=== PATIENT | female | born 2000 | race Two or more races ===

== ENCOUNTER 2020-05-05 17:45 | Emergency (ER) | payer MEDICAID, OTHER ==
--- NOTE | 2020-05-05 17:51 | EDM.PDOC ---
ED HPI GENERAL MEDICAL PROBLEM - General Stated Complaint: SOB/FEVER Time Seen by Provider: 05/05/20 17:50 Source of Information: Reports: Patient History Limitations: Reports: No Limitations - History of Present Illness INITIAL COMMENTS - FREE TEXT/NARRATIVE: HISTORY AND PHYSICAL: History of present illness: Patient is a 19 year old female who presents to the ED with c/o body aches, shortness of breathe, and fever. States she has had body aches over the past 2 weeks. Today she had a fever of 102 and SOB when she tried to take in deep breathes or do physial activities. States her mother works at a halfway and she works at [employer], she has many unknown exposures - but has had no definite exposures. No one immediately around her is ill. Patient denies any headache, change in vision, syncope or near syncope. Denies any chest pain, back pain or cough. Denies any abdominal pain, nausea, vomiting, diarrhea, constipation or dysuria. Denies any chance of today. Patient has been eating and drinking appropriately. Review of systems: As per history of present illness and below otherwise all systems reviewed and negative. Past medical history: As per history of present illness and as reviewed below otherwise noncontributory. Surgical history: As per history of present illness and as reviewed below otherwise noncontributory. Social history: See social history for further information Family history: As per history of present illness and as reviewed below otherwise noncontributory. Physical exam: General: Well developed and well nourished 19 year old female. A&O x 3. Nontoxic appearing and in no acute distress. VSS and have been reviewed by me. HEENT: Atraumatic, normocephalic, pupils equal and reactive bilaterally, negative for conjunctival pallor or scleral icterus, mucous membranes moist, TMs normal bilaterally, throat clear, neck supple, nontender, trachea midline. No drooling or trismus noted. No meningeal signs. No hot potato voice noted. Lungs: Clear to auscultation, breath sounds equal bilaterally, chest nontender. Heart: S1S2, regular rate and rhythm without overt murmur Abdomen: Soft, nondistended, nontender. Skin: Intact, warm, dry. No lesions or rashes noted. Extremities: Atraumatic, moves all extremities per self without difficulty or deficits, negative for cords or calf pain. Neurovascular unremarkable. Neuro: Awake, alert, oriented. Cranial nerves II through XII unremarkable. Cerebellum unremarkable. Motor and sensory unremarkable throughout. Exam nonfocal. Notes: Due to her reported temperature and current symptoms and exposure to the general public, I will do a COVID swab on her. I don't feel she needs any lab work, she looks overall generally healthy. All diagnostics are within normal limits. Patient continues to appear well appearing and will be appropriate to be discharged home. supportive care measures were reviewed and discussed. Voices understanding and is agreeable to plan of care. Denies any further questions or concerns at this time. Diagnostics: CXR, COVID-19, EKG Therapeutics: None Prescription: None Impression: Viral upper respiratory illness Plan: 1. Your chest x-ray, EKG and COVID-19 screening all were negative. Please continue to perform supportive care measures such as increasing your fluids, alternating Tylenol and ibuprofen and getting plenty of rest. 2. Follow-up with your primary care provider as we discussed. 3. Return to the emergency room as needed and as discussed. Definitive disposition and diagnosis as appropriate pending reevaluation and review of above. Generalized Pain Score (Numeric/FACES): 6 - Related Data Allergies Allergy/AdvReac Type Severity Reaction Status Date / Time No Known Allergies Allergy Verified 05/05/20 18:03 Home Meds: Home Meds . [No Known Home Meds] 05/05/20 [History] ED ROS GENERAL - Review of Systems Review Of Systems: Comprehensive ROS is negative, except as noted in HPI. ED EXAM, GENERAL - Physical Exam Exam: See Below (See dictation) Course - Vital Signs Last Recorded V/S: Last Vital Signs Temp 98.1 F 05/05/20 18:00 Pulse 88 05/05/20 18:00 Resp 18 05/05/20 18:00 BP 124/82 05/05/20 18:00 Pulse Ox 96 05/05/20 18:00 - Orders/Labs/Meds Orders: Active Orders 24 hr Category Date Time Status EKG Documentation Completion [RC] STAT Care 05/05/20 18:01 Active Labs: Laboratory Tests 05/05/20 Range/Units 18:39 COVID-19 (JORGE) NEGATIVE (NEGATIVE) Departure - Departure Time of Disposition: 19:11 Disposition: Home, Self-Care 01 Clinical Impression: Viral upper respiratory illness - Discharge Information Instructions: Viral Respiratory Infection, [id number] Referrals: Estee Farmer NP [Primary Care Provider] - Additional Instructions: The following information is given to patients seen in the emergency department who are being discharged to home. This information is to outline your options for follow-up care. We provide all patients seen in our emergency department with a follow-up referral. The need for follow-up, as well as the timing and circumstances, are variable depending upon the specifics of your emergency department visit. If you don't have a primary care physician on staff, we will provide you with a referral. We always advise you to contact your personal physician following an emergency department visit to inform them of the circumstance of the visit and for follow-up with them and/or the need for any referrals to a consulting specialist. The emergency department will also refer you to a specialist when appropriate. This referral assures that you have the opportunity for follow-up care with a specialist. All of these measure are taken in an effort to provide you with optimal care, which includes your follow-up. Under all circumstances we always encourage you to contact your private physician who remains a resource for coordinating your care. When calling for follow-up care, please make the office aware that this follow-up is from your recent emergency room visit. If for any reason you are refused follow-up, please contact the [facility] Emergency Department at and asked to speak to the emergency department charge nurse. [facility] [address] [place] [id number] [address] Thank you for choosing the [facility] emergency department in [place] for your medical needs today. It was a pleasure caring for you. You were seen in the emergency department for respiratory symptoms and body aches. 1. Your chest x-ray, EKG and COVID-19 screening all were negative. Please continue to perform supportive care measures such as increasing your fluids, alternating Tylenol and ibuprofen and getting plenty of rest. 2. Follow-up with your primary care provider as we discussed. 3. Return to the emergency room as needed and as discussed. Sepsis Event Note (ED) - Focused Exam Vital Signs: Vital Signs Temp Pulse Resp BP Pulse Ox 05/05/20 18:00 98.1 F 88 18 124/82 96 - My Orders Last 24 Hours: My Active Orders 05/05/20 18:01 EKG Documentation Completion [RC] STAT - Assessment/Plan Last 24 Hours: My Active Orders 05/05/20 18:01 EKG Documentation Completion [RC] STAT
--- NOTE | 2020-05-05 18:56 | CR ---
Chest: Portable view of the chest was obtained. Comparison: Prior chest x-ray of 11/23/13. Heart size and mediastinum are normal. Lungs are clear. Bony structures are grossly intact. Impression: 1. Nothing acute is seen on portable chest x-ray. Diagnostic code #1 This report was dictated in MDT
== END 2020-05-05 19:23 | disposition home or self-care (01) ==
LOC: MW.ED 17:45
DX: J98.8 Other specified respiratory disorders (principal); B97.89 Other viral agents as the cause of diseases classified elsewhere; Z20.828 Contact with and (suspected) exposure to other viral communicable diseases
CPT/HCPCS: 71045; 71045-26; 93005; 99282; 99285-25; U0002

== ENCOUNTER 2020-12-31 10:37 | Emergency (ER) | payer MEDICAID ==
--- NOTE | 2020-12-31 11:28 | EDM.PDOC ---
ED HPI GENERAL MEDICAL PROBLEM - General Chief Complaint: General Stated Complaint: LUMP ON SIDE Time Seen by Provider: 12/31/20 10:46 Source of Information: Reports: Patient History Limitations: Reports: No Limitations - History of Present Illness INITIAL COMMENTS - FREE TEXT/NARRATIVE: HISTORY AND PHYSICAL: History of present illness: Patient is a 20-year-old female who presents to the ED today with concern of left-sided rib pain/a "lump "on the left side of her ribs. Patient states that she has noticed this for the past 1 week and states that she came today to get this evaluated as she was concerned about a possible tumor. Patient denies any trauma or injury and or any other associative symptoms. Patient denies any health history. Patient denies fever, chills, chest pain, shortness of breath, or cough. Denies headache, neck stiff ness, change in vision, syncope, or near syncope. Denies nausea, vomiting, abdominal pain, diarrhea, constipation, or dysuria. Has not noted any blood in urine or stool. Patient has been eating and drinking appropriately. Review of systems: As per history of present illness and below otherwise all systems reviewed and negative. Past medical history: As per history of present illness and as reviewed below otherwise noncontributory. Surgical history: As per history of present illness and as reviewed below otherwise noncon tributory. Social history: See social history for further information Family history: As per history of present illness and as reviewed below otherwise noncontributory. Physical exam: General: Patient is alert, oriented, and in no acute distress. Patient sitting comfortably on exam table. Vitals stable and reviewed by me. HEENT: Atraumatic, normocephalic, pupils equal and reactive bilaterally, negative for conjunctival pallor or scleral icterus, mucous membranes moist, TMs normal bilaterally, throat clear, neck supple, nontender, trachea midline. No drooling or trismus noted. No meningeal signs. No hot potato voice noted. Lungs: Clear to auscultation, breath sounds equal bilaterally, chest nontender. Chest: Patient has a slightly pronounced rib 8 on the left anterior rib cage with mild pain to palpation. No obvious masses, lesions, rashes, noted to patients stated complaint. Heart: S1S2, regular rate and rhythm without overt murmur Abdomen: Soft, nondistended, nontender. Negative for masses or hepatosplenomegaly. Negative for costovertebral tenderness. Pelvis: Stable nontender. Genitourinary: Deferred. Rectal: Deferred. Skin: Intact, warm, dry. No lesions or rashes noted. Extremities: Atraumatic, negative for cords or calf pain. Neurovascular unremarkable. Neuro: Awake, alert, oriented. Cranial nerves II through XII unremarkable. Cerebellum unremarkable. Motor and sensory unremarkable throughout. Exam nonfocal. Notes: On initial exam, patient is well-appearing and vitally stable. She does complain of a "lump "on her left anterior rib cage, however, on exam I do not appreciate any lumps, masses, lesions, or rashes. She does have a slightly pronounced rib #8 on the left, which is non specific and mildly tender to palpation on exam, as to the etiology, but likely a normal variant of patient's body habitus. I did offer rib x-ray at this time, but patient declines she does not have time to stay to complete imaging. All risks versus benefits discussed with patient and expresses understanding. Discussed importance for follow-up with a primary care provider. Voices understanding and is agreeable to plan of care. Denies any further questions or concerns at this time. Diagnostics: Rib XR offered but patient declines Therapeutics: None Prescription: None Impression: Left sided rib pain Plan: 1. Rest, ice, elevate the affected extremity. You can apply ice 15 minutes on, 15 minutes off. 2. Tylenol and/or Ibuprofen as directed for pain management or discomfort. 3. Follow up with the primary care provider as discussed. Return to the ED as needed and as discussed. Definitive disposition and diagnosis as appropriate pending reevaluation and review of above. - Related Data Allergies Allergy/AdvReac Type Severity Reaction Status Date / Time No Known Allergies Allergy Verified 12/31/20 11:24 Home Meds: Home Meds . [No Known Home Meds] 05/05/20 [History] Past Medical History - Past Health History Medical/Surgical History: Denies Medical/Surgical History Psychiatric History: Reports: None - Infectious Disease History Infectious Disease History: Reports: None Social & Family History - Family History Family Medical History: No Pertinent Family History - Tobacco Use Tobacco Use Status *Q: Current Every Day Tobacco User Years of Tobacco use: 7 Packs/Tins Daily: 0.2 - Recreational Drug Use Recreational Drug Use: No ED ROS GENERAL - Review of Systems Review Of Systems: Comprehensive ROS is negative, except as noted in HPI. ED EXAM, GENERAL - Physical Exam Exam: See Below (see dictation) Course - Vital Signs Last Recorded V/S: Last Vital Signs Temp 98.0 F 12/31/20 11:21 Pulse 73 12/31/20 11:21 Resp 18 12/31/20 11:21 BP 120/56 L 12/31/20 11:21 Pulse Ox 98 12/31/20 11:21 Departure - Departure Time of Disposition: 11:50 Disposition: Home, Self-Care 01 Clinical Impression: Rib pain on left side - Discharge Information Instructions: Chest Wall Pain, [id number] Referrals: PCP,None [Primary Care Provider] - Forms: ED Department Discharge Additional Instructions: The following information is given to patients seen in the emergency department who are being discharged to home. This information is to outline your options for follow-up care. We provide all patients seen in our emergency department with a follow-up referral. The need for follow-up, as well as the timing and circumstances, are variable depending upon the specifics of your emergency department visit. If you don't have a primary care physician on staff, we will provide you with a referral. We always advise you to contact your personal physician following an emergency department visit to inform them of the circumstance of the visit and for follow-up with them and/or the need for any referrals to a consulting specialist. The emergency department will also refer you to a specialist when appropriate. This referral assures that you have the opportunity for follow-up care with a specialist. All of these measure are taken in an effort to provide you with optimal care, which includes your follow-up. Under all circumstances we always encourage you to contact your private physician who remains a resource for coordinating your care. When calling for follow-up care, please make the office aware that this follow-up is from your recent emergency room visit. If for any reason you are refused follow-up, please contact the [facility] Emergency Department at and asked to speak to the emergency department charge nurse. [facility] [address] [place] [id number] [facility] [address] [place] [address] 1. Rest, ice, elevate the affected extremity. You can apply ice 15 minutes on, 15 minutes off. 2. Tylenol and/or Ibuprofen as directed for pain management or discomfort. 3. Follow up with the primary care provider as discussed. Return to the ED as needed and as discussed. Sepsis Event Note (ED) - Evaluation Sepsis Screening Result: No Definite Risk - Focused Exam Vital Signs: Vital Signs Temp Pulse Resp BP Pulse Ox 12/31/20 11:21 98.0 F 73 18 120/56 L 98
== END 2020-12-31 12:01 | disposition home or self-care (01) ==
LOC: MW.ED 10:37
DX: R07.81 Pleurodynia (principal); Z72.0 Tobacco use
CPT/HCPCS: 99282; 99283

== ENCOUNTER 2021-01-08 23:52 | Emergency (ER) | payer MEDICAID ==
[2021-01-09 04:48] LABS: BLOOD UREA NITROGEN,BUN 6 mg/dL (7.0-18.0); CHLORIDE,CL 105 mmol/L (98-107); GLUCOSE RANDOM 104 mg/dL (74-106); LIPASE 106 U/L (73-393); POTASSIUM,K 3.9 mmol/L (3.5-5.1); SODIUM,NA 140 mmol/L (136-145)
--- NOTE | 2021-01-09 05:19 | CR ---
Indication: Chest and abdominal pain Technique: Chest 1 view Comparison: 05/05/2020 Findings/Impression: Cardiovascular and mediastinum: Heart size and vasculature are normal in caliber and appearance. Mediastinum is within normal limits. Lungs and pleural space: Lungs are clear. No sign of infiltrate or mass. No sign of pleural effusion. No pneumothorax. Bones and soft tissues: No significant findings. Dictated by Gabriel Mishra MD @ Jan 09 2021 5:16AM Signed by Dr. Gabriel Mishra @ Jan 09 2021 5:18AM
== END 2021-01-09 02:01 | disposition home or self-care (01) ==
LOC: MW.ED 23:52
DX: R07.89 Other chest pain (principal); R10.9 Unspecified abdominal pain; F17.200 Nicotine dependence, unspecified, uncomplicated
CPT/HCPCS: 36415; 71045; 71045-26; 80053; 81001; 81025; 83690; 85025; 85379; 93005; 99284-25

== ENCOUNTER 2021-03-14 10:32 | Emergency (ER) | payer MEDICAID ==
--- NOTE | 2021-03-14 10:58 | EDM.PDOC ---
ED HPI GENERAL MEDICAL PROBLEM - General Chief Complaint: General Stated Complaint: DENT IN HEAD Time Seen by Provider: 03/14/21 10:33 Source of Information: Reports: Patient History Limitations: Reports: No Limitations - History of Present Illness INITIAL COMMENTS - FREE TEXT/NARRATIVE: HISTORY AND PHYSICAL: History of present illness: Patient is a 20-year-old female who presents to the emergency room with concerns of a "dent to my head". She states a few days ago she noticed a divot to the top of her scalp which she states is tender and "sometimes feels soft". She denies any injury, trauma or falls. Does states she occasionally has mild headaches but has had these intermittently throughout her lifetime, no worse with recent finding of scalp issue. Patient denies any fever, chills, headache, change in vision, syncope or near syncope. Denies any chest pain, neck/back pain, shortness of breath or cough. Denies any abdominal pain, nausea, vomiting, diarrhea, constipation or dysuria. Has not noted any blood in urine or stool. Patient has been eating and drinking appropriately. Review of systems: As per history of present illness and below otherwise all systems reviewed and negative. Past medical history: As per history of present illness and as reviewed below otherwise noncontributory. Surgical history: As per history of present illness and as reviewed below otherwise noncontributory. Social history: See social history for further information Family history: As per history of present illness and as reviewed below otherwise noncontributory. Physical exam: General: Well developed and well nourished 20-year-old female. Alert and orientated x 3. Nontoxic in appearance and in no acute distress. Vital signs are stable and have been reviewed by me. Nursing notes were reviewed. HEENT: Atraumatic, normocephalic, nontender, without obvious injury, pupils equal and reactive bilaterally, negative for conjunctival pallor or scleral icterus, mucous membranes moist, TMs normal bilaterally, throat clear, neck supple, nontender, trachea midline. No drooling or trismus noted. No meningeal signs. No hot potato voice noted. Lungs: Clear to auscultation bilaterally. No wheezes, rales, or rhonchi. Chest nontender. Normal work of breathing, no accessory muscles used. Heart: S1S2, regular rate and rhythm without overt murmur, gallops, or rubs. No JVD. No peripheral edema Abdomen: Soft, nondistended, nontender. Normoactive bowel sounds. Negative for masses or costovertebral tenderness. C-spine/Back: No pinpoint vertebral tenderness upon palpation. No crepitus, step-offs or obvious deformities. Patient is ambulatory into the emergency room without difficulty or deficit. Able to rock back on heels and walk on toes. Denies any urinary or fecal incontinence. Denies any numbness, tingling or saddle paresthesia. No concerns of serious infection, fracture or cord compression, or cauda equina syndrome. Deep tendon reflexes brisk bilaterally. Skin: Intact, warm, dry. No lesions or rashes noted. Hematologic: No petechiae or purpra. Mucosa appropriate color and normal nail bed color and refill. Extremities: Atraumatic, moves all extremities per self without difficulty or deficits, negative for cords or calf pain. Neurovascular unremarkable. Neuro: Awake, alert, oriented. Cranial nerves II through XII unremarkable. Cerebellum unremarkable. Motor and sensory unremarkable throughout. Exam nonfocal. Psychiatric: Mood and affect are appropriate. Normal thought process. Answering questions appropriately. Notes: *This patient was seen and evaluated during the 2019 SARS-CoV-2 novel coronavirus pandemic period. Community viral transmission is ongoing at time of this encounter and the emergency department is operating under pandemic response procedures. My physical exam is within normal limits. I am unable to appreciate a "dent" that she feels to the scalp. Neurologically intact. Vital signs are stable. She adamantly denies any injury or possibility of injury. She had not palpated the spot in question she states there would be no reason for her to present to the emergency room today. We did discuss imaging. She would like to proceed with a CT of the head. I informed her that she may need an MRI at some point if the area continues to bother her. Otherwise I do not feel there is any need to do any additional diagnostics. Head CT is unremarkable. We discussed signs and symptoms that would prompt her to return to the emergency room. If she continued to feel uneasy she could always follow-up with her primary care provider for further investigation using an MRI. At this time I do not feel it is warranted through the emergency department. I have talked with the patient about today's findings, in addition to providing specific details for plan of care. Reassessment at the time of disposition demonstrates that the patient is in no acute distress. The patient is stable for discharge, counseling was provided and we discussed in great detail signs and symptoms that would prompt them to return to the Emergency Department. Medication, follow up and supportive care measures were reviewed and discussed. Voices understanding and is agreeable to plan of care. Denies any further questions or concerns at this time. Diagnostics: hCGU, head CT Therapeutics: None Prescription: None Impression: Worried well Plan: 1. You were evaluated today on an emergent basis. Your head CT is normal. If you continue to have concerns please follow up with your primary care provider for MRI. But at this time, that is not warranted. 2. You can alternate Tylenol and ibuprofen as needed for pain and fever management. 3. We encourage you to follow up with your primary care provider and/or recommended specialist in the next few days for re-evaluation and further care/management. 4. If your symptoms should worsen, new symptoms develop or any of the signs and symptoms we discussed should arise please return to the emergency room or call 911 (if needed). Definitive disposition and diagnosis as appropriate pending reevaluation and review of above. - Related Data Allergies Allergy/AdvReac Type Severity Reaction Status Date / Time No Known Allergies Allergy Verified 03/14/21 11:09 Home Meds: Home Meds . [No Known Home Meds] 03/14/21 [History] Past Medical History - Past Health History Medical/Surgical History: Denies Medical/Surgical History Psychiatric History: Reports: None - Infectious Disease History Infectious Disease History: Reports: None Social & Family History - Family History Family Medical History: No Pertinent Family History ED ROS GENERAL - Review of Systems Review Of Systems: Comprehensive ROS is negative, except as noted in HPI. ED EXAM, GENERAL - Physical Exam Exam: See Below (See dictation) Course - Vital Signs Last Recorded V/S: Last Vital Signs Temp 97.6 F 03/14/21 10:51 Pulse 93 03/14/21 10:51 Resp 15 03/14/21 10:51 BP 120/76 03/14/21 10:51 Pulse Ox 95 03/14/21 10:51 - Orders/Labs/Meds Labs: Laboratory Tests 03/14/21 Range/Units 11:22 Urine HCG, Qual NEGATIVE (NEGATIVE) Departure - Departure Time of Disposition: 12:36 Disposition: Home, Self-Care 01 Clinical Impression: Worried well - Discharge Information Instructions: Medical Screening Exam Referrals: PCP,None [Primary Care Provider] - Forms: ED Department Discharge Additional Instructions: The following information is given to patients seen in the emergency department who are being discharged to home. This information is to outline your options for follow-up care. We provide all patients seen in our emergency department with a follow-up referral. The need for follow-up, as well as the timing and circumstances, are variable depending upon the specifics of your emergency department visit. If you don't have a primary care physician on staff, we will provide you with a referral. We always advise you to contact your personal physician following an emergency department visit to inform them of the circumstance of the visit and for follow-up with them and/or the need for any referrals to a consulting specialist. The emergency department will also refer you to a specialist when appropriate. This referral assures that you have the opportunity for follow-up care with a specialist. All of these measure are taken in an effort to provide you with optimal care, which includes your follow-up. Under all circumstances we always encourage you to contact your private physician who remains a resource for coordinating your care. When calling for follow-up care, please make the office aware that this follow-up is from your recent emergency room visit. If for any reason you are refused follow-up, please contact the [facility] Emergency Department at and asked to speak to the emergency department charge nurse. [facility] [address] [place] [id number] [address] [id number] Thank you for choosing the [facility] emergency department in [place] for your medical needs today. It was a pleasure caring for you. Today you were seen in the emergency department for concerns of "dent" in scalp. 1. You were evaluated today on an emergent basis. Your head CT is normal. If you continue to have concerns please follow up with your primary care provider for MRI. But at this time, that is not warranted. 2. You can alternate Tylenol and ibuprofen as needed for pain and fever management. 3. We encourage you to follow up with your primary care provider and/or recommended specialist in the next few days for re-evaluation and further care/management. 4. If your symptoms should worsen, new symptoms develop or any of the signs and symptoms we discussed should arise please return to the emergency room or call 911 (if needed). Sepsis Event Note (ED) - Focused Exam Vital Signs: Vital Signs Temp Pulse Resp BP Pulse Ox 03/14/21 10:51 97.6 F 93 15 120/76 95
--- NOTE | 2021-03-14 12:36 | CT ---
INDICATION: Headache, dent top of head TECHNIQUE: CT head without contrast. COMPARISON: FINDINGS: CSF spaces: Within normal limits for age. Brain parenchyma: The grewal-white differentiation is normal. No sign of mass, hemorrhage, or midline shift. Skull base and calvarium: The visualized paranasal sinuses and mastoid air cells demonstrate no acute or significant findings. The visualized orbits are grossly unremarkable. No skull fractures. IMPRESSION: Unremarkable noncontrast head CT. Please note that all CT scans at this facility use dose modulation, iterative reconstruction, and/or weight-based dosing when appropriate to reduce radiation dose to as low as reasonably achievable. Dictated by Adriel Bradley MD @ 03/14/2021 12:34:[address] Adriel Bradley @ Mar 14 2021 12:34PM
== END 2021-03-14 12:51 | disposition home or self-care (01) ==
LOC: MW.ED 10:32
DX: Z71.1 Person with feared health complaint in whom no diagnosis is made (principal)
CPT/HCPCS: 70450; 70450-26; 81025; 99283; 99284-25

== ENCOUNTER 2021-11-11 20:47 | Emergency (ER) | payer MEDICAID ==
[2021-11-12] MEDS ORDERED: Acetaminophen 500 MG Tab PO ONE (00:23)
== END 2021-11-12 00:58 | disposition home or self-care (01) ==
LOC: MW.ED 20:47
DX: S92.405A Nondisplaced unspecified fracture of left great toe, initial encounter for closed fracture (principal); S92.404A Nondisplaced unspecified fracture of right great toe, initial encounter for closed fracture; S00.03XA Contusion of scalp, initial encounter; Y04.0XXA Assault by unarmed brawl or fight, initial encounter
CPT/HCPCS: 70450; 73620; 80305; 81003; 81025; 99284; A9270

== ENCOUNTER 2022-04-15 15:00 | Emergency (ER) | payer OTHER, MEDICAID | END 2022-04-15 16:04 | disposition home or self-care (01) | LOC: MW.ED 15:00 | DX: H60.502 Unspecified acute noninfective otitis externa, left ear (principal) | CPT/HCPCS: 99282 ==

== ENCOUNTER 2024-07-26 05:41 | Emergency (ER) | payer MEDICAID, OTHER | END 2024-07-26 06:18 | disposition home or self-care (01) | LOC: MW.ED 05:41 | DX: S01.81XA Laceration without foreign body of other part of head, initial encounter (principal); S99.922A Unspecified injury of left foot, initial encounter; Z86.16 Personal history of COVID-19; Z75.8 Other problems related to medical facilities and other health care; W20.8XXA Other cause of strike by thrown, projected or falling object, initial encounter | CPT/HCPCS: 99282 ==

== ENCOUNTER 2024-07-30 12:11 | Emergency (ER) | payer SELFPAY | END 2024-07-30 13:16 | disposition home or self-care (01) | LOC: MW.ED 12:11 | DX: M25.572 Pain in left ankle and joints of left foot (principal); M79.644 Pain in right finger(s); Z86.16 Personal history of COVID-19; Z75.8 Other problems related to medical facilities and other health care; X50.9XXA Other and unspecified overexertion or strenuous movements or postures, initial encounter | CPT/HCPCS: 73120-26-RT; 73120-RT; 73610-26-LT; 73610-LT; 73620-26-LT; 73620-LT; 99283 ==

== ENCOUNTER 2024-12-18 17:42 | Emergency (ER) | payer SELFPAY | END 2024-12-18 20:00 | disposition left against medical advice (07) | LOC: MW.ED 17:42 | DX: Z53.21 Procedure and treatment not carried out due to patient leaving prior to being seen by health care provider (principal) ==

== ENCOUNTER 2024-12-19 07:29 | Emergency (ER) | payer SELFPAY ==
[2024-12-19] MEDS: Diphtheria,Pertussis(Acell),Tetanus Vaccine 0.5 ML Syringe IM ONE (08:58)
[2024-12-19] MEDS: Bacitracin Oint 28.35 GM Tube TOP ONE (08:59)
== END 2024-12-19 10:03 | disposition home or self-care (01) ==
LOC: MW.ED 07:29
DX: T21.01XA Burn of unspecified degree of chest wall, initial encounter (principal); T22.012A Burn of unspecified degree of left forearm, initial encounter; Z86.16 Personal history of COVID-19; X10.2XXA Contact with fats and cooking oils, initial encounter; Z23 Encounter for immunization
CPT/HCPCS: 16000; 81025; 90471; 90715; 99283; A9270

== ENCOUNTER 2025-01-08 14:03 | Emergency (ER) | payer MEDICAID ==
[2025-01-08] MEDS ORDERED: Sodium Chloride 0.9% 2.5 ML Syringe FLUSH PRN (14:19)
[2025-01-08] MEDS ORDERED: Sodium Chloride 0.9% 10 ML Syringe FLUSH PRN (14:19)
[2025-01-08] MEDS: Sodium Chloride 0.9% 1,000 ML IV STA ×2 (14:41→15:43)
[2025-01-08] MEDS: Ondansetron 4 MG/2 ML SDV IVPUSH STA (14:52)
[2025-01-08 14:54] LABS: BASOPHILS ABSOLUTE AUTO 0.02 K/uL (0.00-0.20); BASOPHILS PERCENT AUTO 0.1 % (0.0-1.0); EOSINOPHILS ABSOLUTE AUTO 0.01 K/uL (0.00-0.45); EOSINOPHILS PERCENT AUTO 0.1 % (0.0-6.0); HEMATOCRIT 39.4 % (37.0-47.0); HEMOGLOBIN 14.2 g/dL (12.0-16.0); IMMATURE GRAN ABSOLUTE AUTO 0.07 K/uL (0.00-0.05); IMMATURE GRAN PERCENT AUTO 0.5 % (0.0-0.4); LYMPHOCYTES ABSOLUTE AUTO 0.56 K/uL (1.00-4.80); LYMPHOCYTES PERCENT AUTO 3.6 % (24.0-44.0); MEAN CORPUSCULAR VOLUME 83.3 fL (83.0-99.0); MEAN PLATELET VOLUME 11.9 fL (9.4-12.3); MONOCYTES ABSOLUTE AUTO 0.94 K/uL (0.00-0.80); NEUTROPHILS ABSOLUTE AUTO 13.94 K/uL (1.80-7.70); NEUTROPHILS PERCENT AUTO 89.7 % (41.0-71.0); PLATELET COUNT,PLT 318 K/uL (150-400); RED BLOOD CELL COUNT 4.73 M/uL (4.10-5.30); WHITE BLOOD CELL COUNT,WBC 15.54 K/uL (3.9-11.3)
[2025-01-08 14:55] LABS: APPEARANCE,URINE SLT CLOUDY; COLOR,URINE YELLOW; GLUCOSE,URINE NEGATIVE (NEGATIVE); KETONES,URINE 15 mg/dL (NEGATIVE); LEUKOCYTE ESTERASE,URINE TRACE (NEGATIVE); NITRITE,URINE NEGATIVE (NEGATIVE); OCCULT BLOOD,URINE NEGATIVE (NEGATIVE); PH,URINE 5.5 (5.0-8.0); PROTEIN,URINE 30 mg/dL (NEGATIVE); UROBILINOGEN,URINE 0.2 EU/dL (<2.0)
[2025-01-08 15:04] LABS: BILIRUBIN,URINE MODERATE (NEGATIVE)
[2025-01-08 15:23] LABS: BACTERIA,URINE RARE (NEGATIVE); EPITHELIAL CELLS,URINE RARE (NONE-FEW); RBC,URINE 0-2 (0-2/HPF); WBC,URINE 0-2 (0-5/HPF)
[2025-01-08 15:27] LABS: ALBUMIN 4.5 g/dL (3.4-5.0); BILIRUBIN TOTAL 0.7 mg/dL (0.2-1.0); CALCIUM 9.1 mg/dL (8.5-10.1); CARBON DIOXIDE,CO2 24.8 mmol/L (21.0-32.0); CREATININE 1.6 mg/dL (0.6-1.0); POTASSIUM,K 2.7 mmol/L (3.5-5.1)
[2025-01-08] MEDS: cefTRIAXone 1 GM in Sodium Chloride 0.9% 50 ML IV STA (15:43)
[2025-01-08] MEDS: Potassium Chloride 20 MEQ Tab.ER PO STA (16:21)
== END 2025-01-08 18:00 | disposition home or self-care (01) ==
LOC: MW.ED 14:03
DX: O99.281 Endocrine, nutritional and metabolic diseases complicating pregnancy, first trimester (principal); E87.6 Hypokalemia; O26.831 Pregnancy related renal disease, first trimester; N17.9 Acute kidney failure, unspecified; O99.891 Other specified diseases and conditions complicating pregnancy; R82.71 Bacteriuria; O21.9 Vomiting of pregnancy, unspecified; Z75.8 Other problems related to medical facilities and other health care; Z3A.00 Weeks of gestation of pregnancy not specified; Z79.899 Other long term (current) drug therapy
CPT/HCPCS: 36415; 80053; 81001; 83690; 83735; 85025; 87086; 96361; 96365; 96375; 99284; A9270; J0696; J2405; J7030; 99283

== ENCOUNTER 2025-01-13 01:51 | Emergency (ER) | payer MEDICAID ==
[2025-01-13 02:10] LABS: BASOPHILS ABSOLUTE AUTO 0.04 K/uL (0.00-0.20); BASOPHILS PERCENT AUTO 0.4 % (0.0-1.0); EOSINOPHILS ABSOLUTE AUTO 0.11 K/uL (0.00-0.45); HEMOGLOBIN 10.6 g/dL (12.0-16.0); IMMATURE GRAN ABSOLUTE AUTO 0.03 K/uL (0.00-0.05); IMMATURE GRAN PERCENT AUTO 0.3 % (0.0-0.4); LYMPHOCYTES ABSOLUTE AUTO 1.69 K/uL (1.00-4.80); LYMPHOCYTES PERCENT AUTO 15.6 % (24.0-44.0); MEAN CORPUSCULAR HEMOGLOBIN 29.8 pg (28.0-32.0); MEAN CORPUSCULAR HGB CONC 34.2 g/dL (32.0-36.0); MEAN CORPUSCULAR VOLUME 87.1 fL (83.0-99.0); MONOCYTES ABSOLUTE AUTO 0.84 K/uL (0.00-0.80); MONOCYTES PERCENT AUTO 7.7 % (0.0-8.0); NEUTROPHILS ABSOLUTE AUTO 8.14 K/uL (1.80-7.70); PLATELET COUNT,PLT 206 K/uL (150-400); RED BLOOD CELL COUNT 3.56 M/uL (4.10-5.30); WHITE BLOOD CELL COUNT,WBC 10.85 K/uL (3.9-11.3)
[2025-01-13 02:11] LABS: COLOR,URINE YELLOW; GLUCOSE,URINE NEGATIVE (NEGATIVE); KETONES,URINE >=80 mg/dL (NEGATIVE); LEUKOCYTE ESTERASE,URINE TRACE (NEGATIVE); NITRITE,URINE NEGATIVE (NEGATIVE); OCCULT BLOOD,URINE LARGE (NEGATIVE); PH,URINE 8.5 (5.0-8.0); PROTEIN,URINE TRACE mg/dL (NEGATIVE)
[2025-01-13 02:12] LABS: APPEARANCE,URINE HAZY; BILIRUBIN,URINE SMALL (NEGATIVE)
[2025-01-13 02:18] LABS: BACTERIA,URINE FEW (NEGATIVE); EPITHELIAL CELLS,URINE FEW (NONE-FEW)
[2025-01-13 02:19] LABS: MUCUS,URINE LIGHT (NONE-MOD)
[2025-01-13] MEDS: cefTRIAXone 1 GM in Sodium Chloride 0.9% 50 ML IV ONE (02:25)
== END 2025-01-13 03:23 | disposition home or self-care (01) ==
LOC: MW.ED 01:51
DX: O20.9 Hemorrhage in early pregnancy, unspecified (principal); O23.12 Infections of bladder in pregnancy, second trimester; N30.00 Acute cystitis without hematuria; Z3A.14 14 weeks gestation of pregnancy
CPT/HCPCS: 36415; 81001; 84703; 85025; 86900; 86901; 87086; 96365; 99284; J0696

== ENCOUNTER 2025-01-29 09:10 | Emergency (ER) | payer OTHER, MEDICAID ==
[2025-01-29] MEDS ORDERED: Sodium Chloride 0.9% 10 ML Syringe FLUSH PRN (09:30)
[2025-01-29 09:38] LABS: BASOPHILS ABSOLUTE AUTO 0.05 K/uL (0.00-0.20); BASOPHILS PERCENT AUTO 0.4 % (0.0-1.0); HEMATOCRIT 32.6 % (37.0-47.0); HEMOGLOBIN 11.5 g/dL (12.0-16.0); IMMATURE GRAN ABSOLUTE AUTO 0.04 K/uL (0.00-0.05); IMMATURE GRAN PERCENT AUTO 0.3 % (0.0-0.4); LYMPHOCYTES PERCENT AUTO 7.8 % (24.0-44.0); MEAN CORPUSCULAR HEMOGLOBIN 30.2 pg (28.0-32.0); MEAN CORPUSCULAR HGB CONC 35.3 g/dL (32.0-36.0); MEAN CORPUSCULAR VOLUME 85.6 fL (83.0-99.0); MEAN PLATELET VOLUME 11.5 fL (9.4-12.3); MONOCYTES ABSOLUTE AUTO 0.48 K/uL (0.00-0.80); MONOCYTES PERCENT AUTO 4.1 % (0.0-8.0); NEUTROPHILS ABSOLUTE AUTO 10.14 K/uL (1.80-7.70); NEUTROPHILS PERCENT AUTO 87.4 % (41.0-71.0); PLATELET COUNT,PLT 285 K/uL (150-400); RED BLOOD CELL COUNT 3.81 M/uL (4.10-5.30); WHITE BLOOD CELL COUNT,WBC 11.61 K/uL (3.9-11.3)
[2025-01-29 10:00] LABS: A/G RATIO 1.1 (0.9-1.6); ALANINE AMINOTRANSFERASE,ALT 20 IU/L (14-63); ALBUMIN 3.8 g/dL (3.4-5.0); ALKALINE PHOSPHATASE 61 U/L (46-116); ASPARTATE AMNIOTRANSFERASE,AST 25 IU/L (15-37); BILIRUBIN TOTAL 0.4 mg/dL (0.2-1.0); BLOOD UREA NITROGEN,BUN 3 mg/dL (7.0-18.0); CALCIUM 8.6 mg/dL (8.5-10.1); CARBON DIOXIDE,CO2 22.5 mmol/L (21.0-32.0); CHLORIDE,CL 103 mmol/L (98-107); CREATININE 0.7 mg/dL (0.6-1.0); ETHANOL BLOOD MEDICAL 4 mg/dL; GLUCOSE RANDOM 109 mg/dL (74-106); POTASSIUM,K 3.2 mmol/L (3.5-5.1); PROTEIN TOTAL,TP 7.2 g/dL (6.4-8.2); SODIUM,NA 139 mmol/L (136-145)
[2025-01-29 10:01] LABS: ESTIMATED GFR 124 mL/min (>60)
[2025-01-29 10:22] LABS: AMPHETAMINES SCREEN, URINE NEGATIVE (CUTOFF=500); BARBITURATE SCREEN,URINE NEGATIVE (CUTOFF=200); BENZODIAZEPINES SCREEN,URINE NEGATIVE (CUTOFF=150); BUPRENORPHINE SCREEN,URINE NEGATIVE (CUTOFF=10); METHADONE SCREEN, URINE NEGATIVE (CUTOFF=200); METHAMPHETAMINES SCREEN, URINE NEGATIVE (CUTOFF=500); OXYCODONE SCREEN,URINE NEGATIVE (CUT0FF=100); PCP SCREEN,URINE NEGATIVE (CUTOFF=25); THC SCREEN,URINE 20 NG/ML PRESUMPTIVE POSITIVE (CUTOFF=50)
[2025-01-29 10:26] LABS: APPEARANCE,URINE SLT CLOUDY; BILIRUBIN,URINE NEGATIVE (NEGATIVE); COLOR,URINE YELLOW; GLUCOSE,URINE NEGATIVE (NEGATIVE); KETONES,URINE NEGATIVE (NEGATIVE); LEUKOCYTE ESTERASE,URINE NEGATIVE (NEGATIVE); NITRITE,URINE NEGATIVE (NEGATIVE); OCCULT BLOOD,URINE NEGATIVE (NEGATIVE); PROTEIN,URINE TRACE mg/dL (NEGATIVE)
[2025-01-29 10:28] LABS: BACTERIA,URINE RARE (NEGATIVE); EPITHELIAL CELLS,URINE MODERATE (NONE-FEW); RBC,URINE 0-1 (0-2/HPF); WBC,URINE 0-1 (0-5/HPF)
[2025-01-29] MEDS: Diphtheria,Pertussis(Acell),Tetanus Vaccine 0.5 ML Syringe IM ONE (10:38)
[2025-01-29] MEDS: Lidocaine 1% with EPINEPHrine 1:100,000 10 ML MDV INJECT ONE (10:38)
[2025-01-29] MEDS: Bacitracin Oint 1 GM U/D Packet TOP ONE (12:46)
== END 2025-01-29 12:50 | disposition home or self-care (01) ==
LOC: MW.ED 09:10
DX: O9A.312 Physical abuse complicating pregnancy, second trimester (principal); S01.81XA Laceration without foreign body of other part of head, initial encounter; S00.83XA Contusion of other part of head, initial encounter; Z23 Encounter for immunization; Z3A.15 15 weeks gestation of pregnancy; V89.2XXA Person injured in unspecified motor-vehicle accident, traffic, initial encounter
CPT/HCPCS: 12013; 36415; 70450; 70450-26; 70486; 70486-26; 71045; 71045-26; 72125; 72125-26; 76705; 76705-26; 76805; 76805-26; 80053; 80305; 80307; 81001; 85025; 90471; 90715; 99283; 99284-25

== ENCOUNTER 2025-02-05 14:49 | Emergency (ER) | payer MEDICAID ==
[2025-02-05] MEDS ORDERED: Sodium Chloride 0.9% 10 ML Syringe FLUSH PRN (15:21)
[2025-02-05] MEDS ORDERED: Sodium Chloride 0.9% 2.5 ML Syringe FLUSH PRN (15:21)
[2025-02-05] MEDS: LORazepam 2 MG/ML SDV IM ONE (15:44)
[2025-02-05] MEDS: LORazepam 2 MG/ML SDV ONE (15:45)
[2025-02-05 15:52] LABS: AMPHETAMINES SCREEN, URINE NEGATIVE (CUTOFF=500); BARBITURATE SCREEN,URINE NEGATIVE (CUTOFF=200); BENZODIAZEPINES SCREEN,URINE NEGATIVE (CUTOFF=150); BUPRENORPHINE SCREEN,URINE NEGATIVE (CUTOFF=10); METHADONE SCREEN, URINE NEGATIVE (CUTOFF=200); METHAMPHETAMINES SCREEN, URINE NEGATIVE (CUTOFF=500); OXYCODONE SCREEN,URINE NEGATIVE (CUT0FF=100); PCP SCREEN,URINE NEGATIVE (CUTOFF=25); THC SCREEN,URINE 20 NG/ML PRESUMPTIVE POSITIVE (CUTOFF=50)
== END 2025-02-05 17:30 ==
LOC: MW.ED 14:49
DX: O99.891 Other specified diseases and conditions complicating pregnancy (principal); Z02.89 Encounter for other administrative examinations; O99.342 Other mental disorders complicating pregnancy, second trimester; F32.A Depression, unspecified; Z75.3 Unavailability and inaccessibility of health-care facilities; Z3A.17 17 weeks gestation of pregnancy
CPT/HCPCS: 80305; 96372; 99285; J2060; 99283

== ENCOUNTER 2025-04-03 14:06 | Emergency (ER) | payer MEDICAID | END 2025-04-03 15:03 | LOC: MW.ED 14:06 | DX: Z33.1 Pregnant state, incidental (principal); Z79.899 Other long term (current) drug therapy | CPT/HCPCS: 99283 ==